=== PATIENT | female | born 1995 | race Caucasian/White ===

== ENCOUNTER 2016-04-10 22:59 | Emergency (ER) | payer OTHER ==
[~2016-04-10] VITALS: Ht 165.1 cm; Wt 76.5 kg
[2016-04-10 23:06] VITALS: Ht 165.1 cm; Wt 76.5 kg
--- NOTE | 2016-04-10 23:36 | ERD ---
ER Documentation Chief Complaint Date/Time DATE: 04/10/16 TIME: 23:34 Chief Complaint LOWER ABD PAIN STARTED AN HR AGO HPI This patient is a 21-year-old female who is currently 8 weeks presenting to the emergency department for 10 out of 10 intermittent suprapubic pain which began a proximally 45 minutes ago. Additionally the patient has had nausea all day today and one episode of vomiting. The patient denies any dysuria, hematuria, diarrhea, fevers, vaginal bleeding, or other symptoms at this time. There are no other alleviating or exacerbating factors at this time. ROS All systems reviewed and are negative except as per history of present illness. Medications Home Meds Active Scripts Nitrofurantoin Monohyd Macrocr* (Macrobid*) 100 Mg Capsr, 100 MG PO BID for 7 Days, #14 CAP Prov:MARII LOPEZ PA-C 04/11/16 Cephalexin* (Keflex*) 500 Mg Capsule, 500 MG PO BID for 7 Days, #14 CAP Prov:MARII LOPEZ PA-C 04/11/16 Allergies Allergies: Coded Allergies: Penicillins (Verified Allergy, Unknown, 05/11/15) codeine (Verified Allergy, Unknown, 05/11/15) dextromethorphan (Verified Allergy, Unknown, 05/11/15) diphenhydramine (Verified Allergy, Unknown, 05/11/15) guaifenesin (Verified Allergy, Unknown, 05/11/15) phenylephrine (Verified Allergy, Unknown, 05/11/15) pseudoephedrine (Verified Allergy, Unknown, 05/11/15) PMhx/Soc Hx Alcohol Use: No Hx Substance Use: No Hx Tobacco Use: No FmHx Noncontributory for chief complaint Physical Exam Vitals Vital Signs Date Time Temp Pulse Resp B/P Pulse Ox O2 Delivery O2 Flow Rate FiO2 04/11/16 02:00 83 18 111/67 99 Room Air 04/11/16 00:18 98.0 77 20 130/76 97 04/10/16 23:06 97.8 132 20 130/76 97 Physical Exam INITIAL VITAL SIGNS: Reviewed by me. GENERAL: The patient is well developed and appropriate for usual state of health in no apparent distress. The patient is [id number] HEENT: Pupils equal, round, and reactive to light. EOMI. There is no scleral icterus. NECK: C-spine is soft and supple, there is no meningismus. There is no cervical lymphadenopathy. LUNGS: Clear to auscultation bilaterally. There are no rales, wheezes or rhonchi. HEART: Regular rate and rhythm, no murmurs, clicks, rubs or gallops. ABDOMEN: Soft, non-tender, non-distended. There are bowel sounds in all four quadrants. No rebound or guarding. : The patient has suprapubic pain to palpation bilaterally. EXTREMITIES: There is no peripheral cyanosis or edema. No focal swelling or erythema. NEUROLOGICAL: The patient moves all four extremities with 5/5 strength. Cranial nerves II - XII are intact. Normal gait. Alert and oriented SKIN: There is no apparent rash or petechiae. HEME/LYMPHATIC: There is no evidence of excessive bruising or lymphedema. PSYCHIATRIC: The patient does not appear anxious or depressed. Result Diagram: 04/10/16 7048 Results 24 hrs Laboratory Tests Test 04/10/16 23:38 04/11/16 01:08 Basophils # 0.010^3/ul Basophils % 0.2% Beta HCG, Quantitative 778151.0mIU/ml Eosinophils # 0.010^3/ul Eosinophils % 0.2% Hematocrit 41.6% Hemoglobin 14.3g/dl Lymphocytes # 2.110^3/ul Lymphocytes % 15.1% Mean Corpuscular Hemoglobin 30.0pg Mean Corpuscular Hemoglobin Concent 34.3g/dl Mean Corpuscular Volume 87.4fl Mean Platelet Volume 7.9fl Monocytes # 0.710^3/ul Monocytes % 5.3% Neutrophils # 11.210^3/ul Neutrophils % 79.2% Nucleated Red Blood Cells # 0.010^3/ul Nucleated Red Blood Cells % 0.0/100WBC Platelet Count 14718^3/UL Red Blood Count 4.7610^6/ul Red Cell Distribution Width 13.7% White Blood Count 14.210^3/ul Urine Bilirubin NEGATIVE Urine Clarity CLEAR Urine Color LT. YELLOW Urine Glucose NEGATIVE% Urine Hemoglobin NEGATIVE Urine Ketones NEGATIVE Urine Leukocyte Esterase 1+ Urine Microscopic RBC 0-2/HPF Urine Microscopic WBC 10-25/HPF Urine Nitrite NEGATIVE Urine Specific [place] 1.010 Urine Squamous Epithelial Cells MODERATE Urine Total Protein NEGATIVE Urine Urobilinogen 0.2 E.U./dL Urine WBC Clumps FEW Urine pH 6.5 Procedures/MDM ED course: Labs: Lab results reviewed. Urinalysis reviews slight leukocytes but no other abnormalities. Beta Hcg is consistent with 8 weeks of intrauterine . There is leukocytosis with left shift, which is consistent with state. All other labs are unremarkable for acute abnormalities. Imaging: US OB IMPRESSION: 1. Single live intrauterine gestation of approximately 8 weeks 4 days. 2. No subchorionic hemorrhage. 3. Left ovary not visualized. Unremarkable right ovary. Reevaluation: On reevaluation the patient was ambulating throughout the department and seems cheerful and in no acute distress. MDM: This patient is a 21-year-old female presenting to the emergency department for suprapubic pain which began approximately 45 minutes ago. On physical examination there is suprapubic tenderness to palpation. There is no CVA tenderness. There is no upper abdominal pain. I have ordered a CBC, beta quant , type and Rh, ultrasound transvaginally, and urinalysis. Based off of history, physical examination, and workup in the department, the patient's primary diagnosis is Abdominal pain in early , with secondary diagnosis of urinary tract infection. Diagnoses ruled out include ovarian torsion, ectopic , demise, missed , and others. The patient will be treated as an outpatient with Macrobid for UTI. She may take OTC Tyelnol as directed on labeling, as needed for suprapubic pain. She was given OBGYN follow up and she should also follow up with her PCP within the next week. She understands and agrees with the diagnoses and the plan and her questions/ concerns have been addressed at this time. She is hemodynamically stable for discharge. Departure Diagnosis: Primary Impression: Intrauterine Additional Impression: Urinary tract infection Condition: Stable Patient Instructions: Abdominal Pain, Early , Urinary Tract Infections in Women Referrals: RAMÓN FAM MD, HESHMAT MD Additional Instructions: Follow-up with your primary care physician within 1 week. Return to the emergency department immediately should you have any new or worsening symptoms, uncontrolled fevers, or other unexplained symptoms. Take all medications as directed. MARII LOPEZ PA-C Apr 10, 2016 23:36
[2016-04-11 00:07] LABS: BASOPHILS % 0.2 % (0.0-2.0); CONDITION 1; EOSINOPHILS % 0.2 % (0.0-7.0); HEMATOCRIT 41.6 % (37.0-47.0); HEMOGLOBIN 14.3 g/dl (12.0-16.0); LYMPHOCYTES # 2.1 10^3/ul (0.8-2.9); LYMPHOCYTES % 15.1 % (18.0-55.0); MEAN CORPUSCULAR HGB CONC 34.3 g/dl (32.0-37.0); MEAN CORPUSCULAR VOLUME 87.4 fl (72.0-104.0); MEAN PLATELET VOLUME 7.9 fl (7.4-10.4); MONOCYTE # 0.7 10^3/ul (0.3-0.9); MONOCYTES % 5.3 % (0.0-13.0); NEUTROPHIL # 11.2 10^3/ul (1.6-7.5); NEUTROPHILS % 79.2 % (30.0-74.0); PLATELET COUNT 331 10^3/UL (140-440); RED BLOOD COUNT 4.76 10^6/ul (4.20-5.40); RED CELL DISTRIBUTION WIDTH 13.7 % (11.5-14.5); UNCORRECTED WBC 14.2 10^3/ul (4.8-10.8); WHITE BLOOD COUNT 14.2 10^3/ul (4.8-10.8)
[2016-04-11 00:18] VITALS: TEMP 98
--- NOTE | 2016-04-11 00:58 | RADRPT ---
PROCEDURE: US OB. CLINICAL INDICATION: Vaginal bleeding. TECHNIQUE: Multiple sonographic images of the pelvis were obtained. Transabdominal and transvagin al views of the pelvis are available for review. The images were reviewed on a PACS workstation. COMPARISON: No prior studies are available for comparison. FINDINGS: A single live intrauterine is identified. heart rate is 179 beats per minute. The cr own-rump length is 20.2 mm which corresponds to 8 weeks 4 days gestational age by ultrasound criteri a. Estimated date of delivery is11/20/2016. No subchorionic hemorrhage is identified. Right ovary is normal appearance with vascular flow identified. Left ovary is not identified. There is no adnex al mass or free fluid. IMPRESSION: 1. Single live intrauterine gestation of approximately 8 weeks 4 days. 2. No subchorionic hemorrhage. 3. Left ovary not visualized. Unremarkable right ovary. RPTAT: [facility]VK .Delta Orr MD, Date Time Electronically viewed and signed by .Delta Orr MD, on 04/11/2016 00:58 .K/
[2016-04-11 01:36] LABS: ADD UMIC YES; URINE BILIRUBIN (Dip) NEGATIVE (NEGATIVE); URINE BLOOD (Dip) NEGATIVE (NEGATIVE); URINE COLOR LT. YELLOW (YELLOW); URINE GLUCOSE (Dip) NEGATIVE (NEGATIVE); URINE KETONES (Dip) NEGATIVE (NEGATIVE); URINE LEUKOCYTE ESTERASE (Dip) 1+ (NEGATIVE); URINE NITRITE (Dip) NEGATIVE (NEGATIVE); URINE TOTAL PROTEIN (Dip) NEGATIVE (NEGATIVE); URINE UROBILINOGEN (Dip) 0.2 E.U./dL (0.1-1.0)
[2016-04-11] MEDS ORDERED: CEPH-443 PO (01:45)
[2016-04-11] MEDS ORDERED: NITR-58 PO (01:50)
[2016-04-11 02:00] VITALS: BP 111/67; PULSE 83; RESP 18
[2016-04-11 02:14] LABS: SQUAMOUS EPITHELIAL CELL,UR MODERATE
[2016-04-11 02:20] LABS: URINE RBCS 0-2 /HPF (0)
== END 2016-04-11 02:00 | disposition home or self-care (01) ==
LOC: FTE 22:59
DX: O23.41 Unspecified infection of urinary tract in pregnancy, first trimester (principal); O26.891 Other specified pregnancy related conditions, first trimester; R10.2 Pelvic and perineal pain; Z3A.08 8 weeks gestation of pregnancy
CPT/HCPCS: 36415; 76801; 81001; 84702; 85025; 86900; 86901; Z7502; 81003

== ENCOUNTER → 2016-06-01 | Emergency (ER) | payer OTHER ==
[~2016-06-01] VITALS: Ht 165.1 cm; Wt 76.7 kg
[~2016-06-01] MED LIST: ACET500C5 PO; ACETAMINOPHEN 325 MG TAB PO ONE; CEPH-443 PO; FAMO-18 PO; NITR-58 PO; ONDA4TAB14 PO; ONDANSETRON 4 MG INJ IV STA; SOD CHLORIDE 0.9% 1,000 ML IV STA
[2016-06-01 19:18] VITALS: Ht 165.1 cm; Wt 76.7 kg
--- NOTE | 2016-06-01 20:14 | ERD ---
ER Documentation Chief Complaint Date/Time DATE: 06/01/16 TIME: 20:12 Chief Complaint vomiting/abd pain x 1 day. states 17 weeks HPI 21-year-old female presents here in emergency department for complaints of generalized abdominal pain, vomiting, body aches runny nose nasal congestion and fever started today. Patient also has been having dry cough, does not cough up any phlegm or blood. Patient does not have any shortness of breath or wheezing. Patient is currently 17 weeks . Patient denies any vaginal discharge or vaginal bleeding. Patient denies any flank pain. Patient denies hematuria or dysuria. Patient denies any palpitations or irregular heartbeat. Patient denies any dizziness. Patient denies any blood in the stool or black stool. Patient denies any blood in the vomit. ROS All systems reviewed and are negative except as per history of present illness. Medications Home Meds Active Scripts Nitrofurantoin Monohyd Macrocr* (Macrobid*) 100 Mg Capsr, 100 MG PO BID for 10 Days, CAP Prov:MARI KEY PRODUCTION HELPER 06/01/16 Famotidine* (Pepcid*) 20 Mg Tablet, 20 MG PO BID, #60 TAB Prov:MARI KEY PRODUCTION HELPER 06/01/16 Ondansetron (Ondansetron Odt) 4 Mg Tab.rapdis, 4 MG PO Q8 Y for NAUSEA AND/OR VOMITING, #30 TAB Prov:MARI KEY PRODUCTION HELPER 06/01/16 Acetaminophen* (Tylophen*) 500 Mg Capsule, 1 CAP PO Q6H Y for PAIN AND OR ELEVATED TEMP, #20 CAP Prov:MARI KEY PRODUCTION HELPER 06/01/16 Nitrofurantoin Monohyd Macrocr* (Macrobid*) 100 Mg Capsr, 100 MG PO BID for 7 Days, #14 CAP Prov:MARII LOPEZ PA-C 04/11/16 Cephalexin* (Keflex*) 500 Mg Capsule, 500 MG PO BID for 7 Days, #14 CAP Prov:MARII LOPEZ PA-C 04/11/16 Allergies Allergies: Coded Allergies: Penicillins (Verified Allergy, Unknown, 06/01/16) codeine (Verified Allergy, Unknown, 06/01/16) dextromethorphan (Verified Allergy, Unknown, 06/01/16) diphenhydramine (Verified Allergy, Unknown, 06/01/16) guaifenesin (Verified Allergy, Unknown, 06/01/16) phenylephrine (Verified Allergy, Unknown, 06/01/16) pseudoephedrine (Verified Allergy, Unknown, 06/01/16) PMhx/Soc History of Surgery: Yes (HAND) Anesthesia Reaction: No Hx Neurological Disorder: No Hx Respiratory Disorders: No Hx Cardiac Disorders: No Hx Psychiatric Problems: No Hx Miscellaneous Medical Probl: No Hx Alcohol Use: No Hx Substance Use: No Hx Tobacco Use: No FmHx Family History: No coronary disease, No diabetes, No other Physical Exam Vitals Vital Signs Date Time Temp Pulse Resp B/P Pulse Ox O2 Delivery O2 Flow Rate FiO2 06/01/16 22:47 98.6 87 18 90/54 99 Room Air 06/01/16 19:18 100.0 116 20 126/73 100 Physical Exam GENERAL: The patient is well developed and appropriate for usual state of health, in no apparent distress. HEENT: Atraumatic. Ears: Normal tympanic membrane, no erythema or bulging. No ear canal swelling. No ear discharge. Nose: Erythematous nasal turbinates with clear nasal discharge. Throat: oropharynx erythematous with postnasal drip. No tonsillar swelling or tonsillar exudates. No lymphadenopathy. CHEST: Clear to auscultation bilaterally. There are no rales, wheezes or rhonchi. HEART: Regular rate and rhythm. No murmurs, clicks, rubs or gallops. No S3 or S4. ABDOMEN: Soft, nontender and nondistended. Good bowel sounds. No rebound or guarding. No gross peritonitis. No gross organomegaly or masses. No Carmen sign or McBurney point tenderness. BACK: No midline or flank tenderness. EXTREMITIES: Equal pulses bilaterally. There is no peripheral clubbing, cyanosis or edema. No focal swelling or erythema. Full range of motion. Grossly neurovascularly intact. NEURO: Alert and oriented. Cranial nerves 2-12 intact. Motor strength in all 4 extremities with 5/5 strength. Sensation grossly intact. Normal speech and gait. SKIN: There is no apparent rash or petechia. The skin is warm and dry. HEMATOLOGIC AND LYMPHATIC: There is no evidence of excessive bruising or lymphedema. No gross cervical, axillary, or inguinal lymphadenopathy. Result Diagram: 06/01/16201806/01/162018 Results 24 hrs Laboratory Tests Test 06/01/16 20:19 06/01/16 21:12 Alanine Aminotransferase (ALT/SGPT) 40IU/L Albumin 3.9g/dl Albumin/Globulin Ratio 1.34 Alkaline Phosphatase 73IU/L Anion Gap 18 Aspartate Amino Transf (AST/SGOT) 32IU/L Basophils # 0.010^3/ul Basophils % 0.3% Beta HCG, Quantitative 77997.0mIU/ml Blood Urea Nitrogen 5mg/dl Calcium Level 9.5mg/dl Carbon Dioxide Level 23mmol/L Chloride Level 100mmol/L Creatinine 0.55mg/dl Direct Bilirubin 0.00mg/dl Eosinophils # 0.010^3/ul Eosinophils % 0.1% Globulin 2.90g/dl Glucose Level 93mg/dl Hematocrit 40.5% Hemoglobin 14.1g/dl Indirect Bilirubin 0.2mg/dl Lymphocytes # 0.310^3/ul Lymphocytes % 3.1% Mean Corpuscular Hemoglobin 30.1pg Mean Corpuscular Hemoglobin Concent 34.8g/dl Mean Corpuscular Volume 86.4fl Mean Platelet Volume 9.7fl Monocytes # 0.510^3/ul Monocytes % 5.4% Neutrophils # 8.610^3/ul Neutrophils % 90.9% Nucleated Red Blood Cells # 0.010^3/ul Nucleated Red Blood Cells % 0.0/100WBC Platelet Count 78770^3/UL Potassium Level 3.8mmol/L Red Blood Count 4.6910^6/ul Red Cell Distribution Width 12.7% Sodium Level 137mmol/L Total Bilirubin 0.2mg/dl Total Protein 6.8g/dl White Blood Count 9.510^3/ul Urine Bacteria FEW Urine Bilirubin NEGATIVE Urine Clarity SLIGHTLY CLOUDY Urine Color YELLOW Urine Epithelial Cells MODERATE Urine Glucose NEGATIVE% Urine Hemoglobin NEGATIVE Urine Ketones 3+ Urine Leukocyte Esterase TRACE Urine Microscopic RBC 0-2/HPF Urine Microscopic WBC 2-5/HPF Urine Mucus MODERATE Urine Nitrite NEGATIVE Urine Specific [place] >=1.030 Urine Total Protein NEGATIVE Urine Urobilinogen 0.2 E.U./dL Urine pH 6.0 Current Medications Medications (Trade) Dose Ordered Sig/Latanya Route PRN Reason Start Time Stop Time Status Last Admin Dose Admin Sodium Chloride (NS) 1,000 ml @ 1,000 mls/hr Q1H STAT IV 06/01/16 20:04 06/01/16 21:03 DC 06/01/16 20:18 Ondansetron HCl (Zofran Inj) 4 mg ONCE STAT IV 06/01/16 20:04 06/01/16 20:06 DC 06/01/16 20:40 Acetaminophen (Tylenol Tab) 650 mg ONCE ONCE PO 06/01/16 20:30 06/01/16 20:31 DC 06/01/16 20:40 Patient was given medicines for fever control here in the emergency department. After treatment, patient temperature improved and lower. Patient appears well and is hemodynamically stable. Patient was given Zofran here in the emergency department. After treatment, patient was able to tolerate po fluids here in the emergency department without any vomiting. There is no signs and symptoms of dehydration. Normal saline IV bolus was given here in emergency department for rehydration, patient tolerated IV fluids. PROCEDURE: US OB. CLINICAL INDICATION: Pelvic pain TECHNIQUE: Multiple sonographic OB images of the pelvis were obtained. The images were reviewed on a PACS workstation. COMPARISON: No prior studies are available for comparison. FINDINGS: There is a single viable intrauterine gestation. Cardiac activity is present with 156 beats per minute. The presentation is variable. Measurements were made in order to determine age. The results are as follows: BPD = 3.5 cm HC = 14.2 cm AC = 13.1 cm FL = 2.4 cm. Estimated gestational age of approximately 17 weeks and 4 days. The estimated date of delivery is 11/05/2016. The EFW = 213 grams. The placenta is grade 0 and anterior location. There is no evidence for an abruption or placenta previa. The largest volume of amniotic fluid is 3 cm. There are no adnexal masses. IMPRESSION: Single live intrauterine with an estimated gestational age of 17 weeks and 4 days. RPTAT: HPNM Physician Edwin Date Time Electronically viewed and signed by Skinny Canas Physician on 06/01/2016 21 :08 / CC: MARI KEY PRODUCTION HELPER Microbiology INFLUENZA A & B BY EIA Final INFLU A&B BY EIA INFLUENZA A NEGATIVE (Ref Range Neg) INFLUENZA B NEGATIVE (Ref Range Neg) Procedures/MDM Medical Decision Making: Patient's symptoms of fever or runny nose nasal congestion most likely consistent with viral illness, patient still has a trace of leukocytes in the urine consistent with urinary tract infection she does vomiting can be from hyperemesis, can be also from viral infection. Patient's abdominal pain nonspecific at this time. Patient's pain is improved upon pain here in emergency department, vomiting has improved. Patient was rehydrated with IV fluids here in emergency department. There is low suspicion for abdominal emergencies at this time. Patients abdominal exam is normal at this time. Patients radiology exam does not show any abdominal emergencies at this time. There is low suspicion for appendicitis, cholecystitis, abdominal aortic aneurysms or peritonitis at this time. There is low suspicion for sepsis. Patient appears well and is hemodynamically stable. Disposition: Home. Condition: Stable Prescription Zofran, Pepcid, Macrobid, Benadryl Instructions: Patient is advised to take medications as prescribed. Patient is advised to rest, increase fluid intake and do brat diet for next 1-2 days and progress as tolerated. Patient is advised that if symptoms are worse, severe abdominal pain, uncontrolled vomiting, high fever, severe flank pain, worst signs and symptoms, to return to the emergency department immediately. Otherwise, patient can follow up with primary care doctor in 5-7 days. Departure Diagnosis: Primary Impression: Viral syndrome Additional Impressions: UTI (urinary tract infection) Urinary tract infection type: acute cystitis Hematuria presence: without hematuria Qualified Code: N30.00 - Acute cystitis without hematuria Intrauterine Patient Instructions: Understanding Urinary Tract Infections (UTIs), Viral Syndrome (Child) Additional Instructions: Patient is advised to take medications as prescribed. Patient is advised to rest , increase fluid intake and do brat diet for next 1-2 days and progress as tolerated. Patient is advised that if symptoms are worse, severe abdominal pain , uncontrolled vomiting, high fever, severe flank pain, worst signs and symptoms , to return to the emergency department immediately. Otherwise, patient can follow up with primary care doctor in 5-7 days. MARI KEY NP Jun 01, 2016 20:14
[2016-06-01 20:43] LABS: ADD SCAN DIFF NO
[2016-06-01 21:04] LABS: ALBUMIN 3.9 g/dl (3.3-4.9)
[2016-06-01 21:05] LABS: ABNORMAL IP MESSAGE 1; BASOPHILS % 0.3 % (0.0-2.0); EOSINOPHILS % 0.1 % (0.0-7.0); HEMATOCRIT 40.5 % (37.0-47.0); HEMOGLOBIN 14.1 g/dl (12.0-16.0); LYMPHOCYTES # 0.3 10^3/ul (0.8-2.9); LYMPHOCYTES % 3.1 % (18.0-55.0); MEAN CORPUSCULAR HEMOGLOBIN 30.1 pg (29.0-33.0); MEAN CORPUSCULAR HGB CONC 34.8 g/dl (32.0-37.0); MEAN CORPUSCULAR VOLUME 86.4 fl (72.0-104.0); MEAN PLATELET VOLUME 9.7 fl (7.4-10.4); MONOCYTE # 0.5 10^3/ul (0.3-0.9); MONOCYTES % 5.4 % (0.0-13.0); NEUTROPHIL # 8.6 10^3/ul (1.6-7.5); NEUTROPHILS % 90.9 % (30.0-74.0); PLATELET COUNT 315 10^3/UL (140-415); POTASSIUM 3.8 mmol/L (3.5-5.1); RED BLOOD COUNT 4.69 10^6/ul (4.20-5.40); RED CELL DISTRIBUTION WIDTH 12.7 % (11.5-14.5); WHITE BLOOD COUNT 9.5 10^3/ul (4.8-10.8)
[2016-06-01 21:07] LABS: ALBUMIN/GLOBULIN RATIO 1.34; BILIRUBIN,INDIRECT 0.2 mg/dl (0-1.1); BILIRUBIN,TOTAL 0.2 mg/dl (0.2-1.3); CREATININE 0.55 mg/dl (0.44-1.00); TOTAL PROTEIN 6.8 g/dl (6.1-8.1)
[2016-06-01 21:08] LABS: CALCIUM 9.5 mg/dl (8.4-10.2)
--- NOTE | 2016-06-01 21:08 | RADRPT ---
PROCEDURE: US OB. CLINICAL INDICATION: Pelvic pain TECHNIQUE: Multiple sonographic OB images of the pelvis were obtained. The images were reviewed o n a PACS workstation. COMPARISON: No prior studies are available for comparison. FINDINGS: There is a single viable intrauterine gestation. Cardiac activity is present with 156 beats per min leonela. The presentation is variable. Measurements were made in order to determine age. The results are as follows: BPD =3.5 cm HC =14.2 cm AC =13.1 cm FL =2.4 cm. Estimated gestational age of approximately 17 weeks and 4 days. The estimated date of delivery is 11/05/2016. The EFW = 213 grams. The placenta is grade 0 and anterior location. There is no evidence for an abruption or placenta pre via. The largest volume of amniotic fluid is 3 cm. There are no adnexal masses. IMPRESSION: Single live intrauterine with an estimated gestational age of 17 weeks and 4 days. RPTAT: HPNM Physician Edwin Date Time Electronically viewed and signed by Physician Edwin on 06/01/2016 21:08 /
[2016-06-01 21:35] LABS: ADD UMIC YES; URINE BILIRUBIN (Dip) NEGATIVE (NEGATIVE); URINE BLOOD (Dip) NEGATIVE (NEGATIVE); URINE COLOR YELLOW (YELLOW); URINE GLUCOSE (Dip) NEGATIVE (NEGATIVE); URINE KETONES (Dip) 3+ (NEGATIVE); URINE LEUKOCYTE ESTERASE (Dip) TRACE (NEGATIVE); URINE NITRITE (Dip) NEGATIVE (NEGATIVE); URINE TOTAL PROTEIN (Dip) NEGATIVE (NEGATIVE); URINE UROBILINOGEN (Dip) 0.2 E.U./dL (0.1-1.0)
[2016-06-01 21:59] LABS: BACTERIA,URINE FEW; MUCUS,URINE MODERATE; URINE RBCS 0-2 /HPF (0)
[2016-06-01 22:47] VITALS: BP 90/54; PULSE 87; RESP 18; TEMP 98.6
== END | disposition home or self-care (01) ==
LOC: FTE 19:09
DX: O98.512 Other viral diseases complicating pregnancy, second trimester (principal); B34.9 Viral infection, unspecified; O23.12 Infections of bladder in pregnancy, second trimester; O21.9 Vomiting of pregnancy, unspecified; R10.2 Pelvic and perineal pain; Z3A.17 17 weeks gestation of pregnancy
CPT/HCPCS: 36415; 76805; 80053; 81001; 84702; 85025; 87400; 96374; J2405; J7030; Z7502; Z7610; 81003

== ENCOUNTER 2017-05-25 18:56 | Emergency (ER) | END 2017-05-25 23:53 | disposition home or self-care (01) ==